=== PATIENT | male | born 1945 | race Hispanic/Latino ===

== ENCOUNTER 2021-01-27 09:30 | Outpatient (AMB) | payer MEDICARE, SELFPAY ==
--- NOTE | 2021-01-27 09:30 | CWCCLINC_ITS ---
Review of Systems Const Constitutional: Reports daytime sleepiness, Reports difficulty sleeping, Reports lethargy, Reports poor appetite and Reports weight loss ENT Ears. Nose, Mouth, and Throat: Reports change in voice, Reports dysphagia, Reports hearing loss and Reports neck pain Resp Respiratory: Reports cough (dry, when eating) GI Gastrointestinal: Reports dysphagia and Reports nausea Comments: altered taste Musc Musculoskeletal: Reports back pain (low back - sacrum) and Reports neck pain Psych Psychiatric: Reports difficulty concentrating and Reports irritability Exam Const General: cooperative Orientation: alert Neuro General: patient alert Cognition: normal cognition Speech: speech normal Psych Mental Status: mental status grossly normal Mood: congruent mood and euthymic mood Affect: normal affect Attitude: cooperative Thought Process: normal Thought Content: normal Judgment: judgment good Supplemental Info Assessment & Plan: 1. Unintentional weight loss. Loss of appetite and taste secondary to chemotherapy and difficulty swallowing due to tumor related esophageal stricture. Nausea and dry cough with forced intake on prochlorperazine. Dysphagia improving. Recommended modified texture foods (smoothies), continued intake of favorite foods (carrot-orange juice), indulging in cravings and stimulating taste buds with sour citrus and candies. Referred to RD. Patient amenable to plan. Follow-up at next encounter. 2. Gastritis with H. pylori. Diagnosed by EGD and biopsy. Hesitant to take amoxicillin course prescribed by Dr. Javier. No DDI with chemotherapy regimen. Recommended taking amoxicillin to eradicate H. pylori and improve gastritis in order to promote gastroesophageal comfort and nutrition. Referred to Precious Guidry should patient have additional questions regarding chemotherapy. Donaldo to contact Dr. Javier for prescription. Follow-ip at next encounter. 3. geriatric psychiatrist awakening. Onset x 2 months, attributed to alteration in evening routine (going to bed at 7pm) and change to circadian rhythm. Now going to bed at 8-9pm, awakening at 1-2am. Patient engaging in stimulating activities (computer programming) while remaining in the bedroom after awakening. Trial and failure of melatonin 6mg HS x 2 months. Discussed sleep hygiene modifications such as going to bed later at a similar time to Donaldo, moving the computer out of the bedroom, and engaging in relaxing activities upon morning awakening rather than stimulating activities. Patient amenable to plan. Follow-up at next encounter. 4. Neck and low back pain. Likely due to extended periods of sitting at the computer, areas not corresponding with bone scan. Self-treating with diclofenac gel. Continue current management. Monitor. 5. Medication Reconciliation. Completed. 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 Dysphagia 2/2 esophageal stricture IDT Present IDT Present: MD Shaneka Claros, INTERACTIVE ACCOUNT MANAGER, INTERNET AND E BUSINESS PROJECT MANAGER Family/Board Machine Set Up Operator(s) present Family/Caregiver (s) present: Donaldo - Patients stated concerns Patient's stated concerns: Loss of appetite and taste with weight loss Fullness when swallowing with nasuea and cough geriatric psychiatrist awakening x 2 months Subjective notes Subjective Narrative: Sai is a pleasant Dutch speaking 56 YO M from [facility] who is on a teleconference for his initial Palliative Care Encounter. He is accompanied by his , Donaldo. He states he had his 1st round of chemotherapy last week and tolerated it well except for a total loss of appetite and taste with accompanying weight loss. He has chemo every 3 weeks for 4 rounds. He states he is not depressed at all from his diagnosis and is approaching his cancer and treatment in a positive manner. He has a fullness when swallowing due to tumor mass strangling him, which has improved after chemo and esophageal dilation. He c/o early rising at 1-2am x 2 months with resulting daytime tiredness where even showering is a task. His , Donaldo, reported to INTERACTIVE ACCOUNT MANAGER last week that the patient was prescribed Amoxicillin for H. Pylori, but they have c oncerns about taking it with chemo. He was given dexamethasone for OAKES, but stopped taking it due to severe OAKES. He states his AOKES were caused by tumor burden on his blood flow to his brain, which has resolved now. 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 [place] AARP [employer] Medicare Advantage Sai has a PhD in Organic Chemistry from [employer] Donaldo - Molecular Stocklayer Julius PhD in chemistry - son teaches at [employer] son - Masters in ? Daughter - teaches at [employer] in [place] Grandkids x 5 (2 girls 13, 8; 2 boys 9, girl 7) *CWC Office Visit complete CWC Offive Visit Complete CWC Visit Complete?: Yes
[2021-01-27 11:11] VITALS: BMI 24.4
[2021-02-06 11:00] VITALS: BMI 24.7
--- NOTE | 2021-02-07 11:45 | PR.OPPALCARP ---
Vital Signs 01/27/21 11:11 02/06/21 11:00 Height 1.83 m 1.75 m Height Method Stated Weight 81.647 kg 76.204 kg Weight Measurement Method Stated by Patient BMI 24.4 24.7 OP Palliative Care CWC Palliative Care Assessment Personal/Provider information Diagnosis: Lung Cancer with possible brain and liver Mets Referral source Referral Source: Inital Visit (02/07/21, 11:45 am) Diagnosis Diagnosis: Lung Cancer with possible brain and liver Mets Nutritional Assessment Nutritional Assessment additional comments: Contacted Pt Sai Charleskeyona?s Lauren (Donaldo) over the phone on 02/07/21 at 11:45am for the initial nutrition assessment of Palliative Care Team referral. Diagnosis and PMH include: Lung cancer with possible brain Mets and ?liver Mets, Superior vena cava syndrome, COPD, HTN, 40 pack year smoking history (Quit in October), drank Rum daily x10 years (quit in months ago),Gastritis with H. pylori, Dysphagia 2/2 esophageal stricture. Treatment: Chemo Q 3 weeks x4 rounds; Pt on atezolizumab, carboplatin and etoposide based chemotherapy per Dr. Felix note. Radiation daily M-F. Current nutrition concern: Significant weight loss, Nausea especially when swallowing, Limited oral intake. Swallowing difficulty, Taste change. Current stated Height: 5?9?, stated current weight: 168 lbs. (02/06/21).? Usual weight was 200 lbs. ? Donaldo reports weight loss of 10 lbs. in 2 weeks after Cancer dx. Weight dropped to 180 lbs. when he was in ER 12/23/20. Current weight reflect significant weight loss of 32 lbs. from usual weight, and wt. loss of 12 lbs. in one month (6.7%). Based on Sai status, his IBWR (ideal body weight range): 144-176 lbs. (160 lbs. +/- 10%).? Donaldo reports Pt has difficulty in swallowing, liquid better. He c/o acid reflux, he eats a corner of Luxembourgish toast, a spoonful of scramble eggs, few bites of Ramen noodles, sips of Boost.? He drank the 8 oz. carrot. Perry juice smoothies, ate whole ice cream and tolerated well day before. Sai has limited physical activities, walking outside at times. Sai dislike peanuts, not eating peanut butter. He likes various flavor (vanilla, chocolate or strawberry) of commercially made oral nutrition supplement, some samples will be provided. ?Donaldo is contemplating time for feeding tube.? Oral ONS is encouraged at this time and alternative feeding method is indicated when unable to swallow adequate amount of nutrition and hydration for needs. Food Allergy/intolerance: None reported. Pt has Nausea when swallowing, denied Vomiting. Donaldo also reports off and on Constipation or diarrhea with Last Bowl movement recent. Nutrition education and handouts provided on the following topic: *Managing eating problems and diet after chemotherapy *Radiation Therapy and Nutrition * Nutrition during and after cancer treatment *Increasing calorie and protein intake * High calorie, high protein recipes. * Cancer and Nausea, weight loss, taste or smell changes. Oral Nutrition Supplement samples provided: Ensure high protein, Ensure plus, Boost VHC (strawberry), Peptamen prebiotic (Vanilla), Beneprotein (25 kcal/6 gm protein), Benecalorie (330 kcal/7 gm protein) Nutrition diagnosis and Problems: NC-3.2 Unintentional/Involuntary Weight Loss: 6.6 % in one month, 32 lbs. weight loss x3 months NC 1.1 Swallowing difficulty r/t esophageal stricture NC 1.4 Altered GI function with acid reflux and H pylori NI 1.4 Inadequate energy intake with swallowing difficulty and limited oral intake. Nutrition Intervention and Recommendation: 1.? Eat small frequent meals to include high kcal, high protein Oral Nutrition Supplement to prevent further significant weight loss. 2.? Increase intake of ONS minimum 4-5 Cartons per day and eats table foods as tolerated ad joshua. 3.? Encourage adequate and increased fluid intake as tolerated. 4.? Monitor needs for alternative feeding method for nutrition and hydration. 5.? RDN to monitor medical progress, appetite, GI function, adequate oral intake, ONS samples tolerance and other nutrition support needs. *CWC Office Visit complete CWC Offive Visit Complete CWC Visit Complete?: Yes
--- NOTE | 2021-02-13 09:12 | PR.OPPALCARP ---
Vital Signs 01/27/21 11:11 Height 1.83 m Weight 81.647 kg BMI 24.4 OP Palliative Care [facility] Palliative Care Assessment Personal/Provider information List Name, Facility and location of PCP: Delisa Rasheed [place] Prognosis Prognosis: Fair List Name, Facility and location of PCP: Delisa Rasheed [place] Prognosis: Fair Advanced Care plan discussed: No Primary Medical Surrogate Decision Maker?: Yes Existing Advance Directive: No POLST Form: No Comments Additional Comments: Discussed at a later time. Patient was tired and call ended. Will have a follow-up discussion regarding ADVDIR and POLST. List Name, Facility and location of PCP: Delisa Rasheed [place] Patient Diagnosis: Small Cell Lung Cancer Prognosis: Fair Current goal of care: Life-prolonging Mental Status: Alert and Oriented Coping Status: Coping well Emotional Status: Appropriate Mood Learning needs: Motivational Home situation: Patient lives with his , mother in-law, and brother in-law. Support System: Good Financial Status: Adequate Care Conf Coordinator: Cortney Mitchell date/time/location: 01/27/21 9:30am [facility] Conference Room Patient Diagnosis: Small Cell Lung Cancer Purpose of meeting: Palliative Care Initial Encounter Participants in meeting and relationship: Sai Woodruff, patient Lauren Woodruff, Shaneka Walker, GROUND SOURCE HEAT PUMP TECHNICIANDarleen Culp, PharmD Dr. Aquiles Minor How are patients wishes known: Patient cognitive/verbal Who is the decision maker for the patient: Patient Issues addressed: Adjustment to Illness Difficulty Sleeping Poor Appetite Discussion/Outcomes/Follow-up: Sai Woodruff is a 75 year old male born in [facility] who presented to his initial Palliative Care encounter via phone call. Patient?s , Lauren Woodruff, was on the call with patient. Patient was pleasant and cooperative during the call. Patient was alert and oriented. Mood and affect was within normal limits and thought process was congruent with thought content. No disturbances to speech patterns. Patient reported he has not been feeling depressed as he has psychologically accepted his condition. Patient reported he is taking his cancer diagnosis as just another thing he is dealing with and is dealing with it in a positive matter. Patient reported he is coping well. Patient denied a mental health history. Patient denied alcohol and drug use. Patient stopped smoking 4 months ago. Completed the PHQ-9 depression screening based on patient response he scored a 13 indicating moderate depression, however, patient reported he did not feel depressed. Patient reported no SI/HI past or current. Patient was unable to complete the Anxiety screening as he was feeling tired by the end of the session. Will assess at a later time. Patient denied having hallucinations. Patient reported it has been frustrating not being able to concentrate in simple things like reading, working on his furniture making, or problem solve. Patient reported it takes him longer to do activities. Recommended patient incorporate taking breaks when engaging in an activity to help reduce frustrations. Patient reported trouble sleeping. PharmD provided sleep hygiene tips. In addition, recommended patient engage in deep breathing as a form of relaxation and emailed him the handout out ?Deep Breathing?. Patient reported he enjoys watching moves, reading books, and he does enjoy sitting by himself. Patient is able to complete ADL?s independently. Patient reported he does use a stool in the bathroom. Patient?s assist with ADL?s as well. Patient is not driving at this time Patient reported he has a PhD in Organic Chemistry which he obtained in 1967 from [employer]. Patient retired in 2000. 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 Patient has 3 sources of income, Social Security, Half-Way benefits, and savings/investments. Patient is meeting basic needs. Patient lives in a house with his , mother in-law, and brother in-law. Patient has been for 50 years. Patient identified as Presybeterian, but does not actively participate. Patient reported he has 5 grandchildren. Patient reported he has 3 children. Patient has a daughter who teaches at [employer], son has a PhD in Chemistry and teaches at [employer], and his middle son is a civil defense director. Patient has 2 brothers and 2 sisters in [facility] who he speaks too. Patient?s speaks to their children frequently. Patient identified interest in horses and working in a farm. Patient reported one of his granddaughters shares his same interest. Patient?s goal is to obtain a certificate in Programming from the [employer]. Patient would like to become a ios programmer. Patient enjoys furniture making (Ex: tables, chairs, and stool) and caring for his chickens and birds. Patient lives in a 15 acre property. Patient reported his has a nice garden as well. Reviewed with patient the PC patient expectation forms. Patient was agreeable with the expectations. See Christianne Neves notes for recommendations on medications and medical concerns. Tenative date for F/U Patient family meeting: February 2021 Advanced Directive: No POLST Form: No Primary Medical Surrogate Decision Maker?: Yes List Name, Facility and location of PCP: Delisa Rasheed, [facility], [place], [place] *CWC Office Visit complete CWC Offive Visit Complete CWC Visit Complete?: No
== END 2021-01-27 11:30 | disposition home or self-care (01) ==
LOC: HODCWC 09:41
PROVIDERS: PCP Radiology Therapeutic Radiology; Referring Provider Radiology Therapeutic Radiology; Visit Provider Radiology Therapeutic Radiology
DX: Z51.5 Encounter for palliative care (principal)